=== PATIENT | male | born 1945 | race Caucasian/White ===

== ENCOUNTER 2018-03-05 11:25 | Emergency (ER) | payer MEDICARE, OTHER ==
[~2018-03-05] VITALS: Ht 172.7 cm; Wt 115.7 kg
--- OUTSIDE RECORDS SUMMARY | ~2018-03-05 | XMS | Clinical Summary ---
Demographics + + + | Address | [address] | | | [place] [address] | + + + | Home Phone | | + + + | Preferred Language | Unknown | + + + | Marital Status | | + + + | Sikhism Affiliation | Unknown | + + + | Race | Unknown | + + + | Ethnic Group | Unknown | + + + Author + + + | Author | [facility] | | | and Clana | + + + | Organization | [facility] | | | and Clana | + + + | Address | Unknown | + + + | Phone | Unavailable | + + + Support + + + + + | Name | Relationship | Address | Phone | + + + + + | Marta Crane | ECON | [address] | | | | | [place], [place] | | | | | [address] | | + + + + + Care Team Providers + +------+ + | Care Cloth Colorer Name | Role | Phone | + +------+ + | Unknown, Doctor | PP | | + +------+ + Allergies Not on File Current Medications Not on file Active Problems Not on file Social History + +-------+ +--------+------+ | Tobacco Use | Types | Packs/Day | Years | Date | | | | | Used | | + +-------+ +--------+------+ | Never Assessed | | | | | + +-------+ +--------+------+ + + + | Sex Assigned at | Date Recorded | | | | + + + | Not on file | | + + + Plan of Treatment + + + + + | Health Maintenance | Due Date | Last Done | Comments | + + + + + | Vaccine: | | | | | Dtap/Tdap/Td (1 - | 6 | | | | Tdap) | | | | + + + + + | Vaccine: Zoster (1 | | | | | of 2) | 7 | | | + + + + + | Vaccine: | | 10/31/2015 | | | Pneumococcal 65+ | 7 | | | | Low/Medium Risk (2 | | | | | of 2 - PPSV23) | | | | + + + + + | Vaccine: Influenza | | 05/11/2016, 05/05/2015 | | | (#1) | 8 | | | + + + + + Results Not on filefrom Last 3 Months Insurance + +--------+ +--------+-------+---------+ | Payer | Benefi | Subscriber | Type | Phone | Address | | | t Plan | ID | | | | | | / | | | | | | | Group | | | | | + +--------+ +--------+-------+---------+ | [employer] | [employer] | [id number] | Indemn | | | | | [place] | | ity | | | | | AD[place] | | | | | | | [place] | | | | | | | [place] | | | | | + +--------+ +--------+-------+---------+ + +--------+ +--------+ + + | Guarantor Name | Accoun | Relation to | Date | Phone | Billing Address | | | t Type | Patient | of | | | | | | | | | | + +--------+ +--------+ + + | JALEN CRANE | Person | Self [birth year] Home: | [address] | | | al/Fam | | 1945 | [phone] | [place] [address] | | | [place] | | | [phone] | | + +--------+ +--------+ + +"
--- OUTSIDE RECORDS SUMMARY | ~2018-03-05 | XMS | Clinical Summary ---
Demographics + + + | Address | [address] | | | [place] [address] | + + + | Home Phone | | + + + | Preferred Language | Unknown | + + + | Marital Status | | + + + | Yarsanism Affiliation | Unknown | + + + | Race | Unknown | + + + | Ethnic Group | Unknown | + + + Author + + + | Author | [facility] | | | and Clana | + + + | Organization | [facility] | | | and Clana | [...] [place], [place] | | | | | [address] | | + + + + + Care Team Providers + +------+ + | Care Disk Recoater Name | Role | Phone | + [...] +--------+-------+---------+ | [employer] | [employer] | [id number] | Indemn | | | | | [...] | 1945 | [phone] | [place] [address] | | | [place] | | | [phone] | | + +--------+ +--------+ + +"
[~2018-03-05 11:25] MED LIST: ASPIR-LOW81 MG PO; CIPRO500 MG PO; HYDROCHLOROTHIA25 MG PO; HYDROCODON-ACE1 EA11 PO; LISINOPRIL20 MG PO; METRONIDAZOLE500 MG PO; MINIPRESS2 MG PO; NORVASC5 MG PO; PROAIR RESPICL90 MCG IH; PROVENTIL HFA6.7 GM; PROVENTIL HFA6.7 GM INH; VALSARTAN160 MG
[2018-03-05] MEDS ORDERED: LISINOPRIL10 MG PO (11:58)
[2018-03-05] MEDS ORDERED: FLONASE ALLERG9.9 ML NAS (11:58)
[2018-03-05] MEDS ORDERED: SYMBICORT 80-10.2 GM INH (11:59)
== END 2018-03-05 13:05 | disposition home or self-care (01) ==
LOC: ED 11:25
DX: S61.213A Laceration without foreign body of left middle finger without damage to nail, initial encounter (principal); W26.0XXA Contact with knife, initial encounter; I10 Essential (primary) hypertension; Z79.899 Other long term (current) drug therapy
CPT/HCPCS: 12001; 90471; 90715; 99282

== ENCOUNTER 2020-05-05 12:51 | Emergency (ER) | payer MEDICARE ==
[~2020-05-05] VITALS: Ht 172.7 cm; Wt 113.9 kg
[~2020-05-05 12:51] MED LIST changes: +FLONASE ALLERG9.9 ML NAS; +LISINOPRIL10 MG PO; +LUBRICATING PL1 EACH OPTH; +SYMBICORT 80-10.2 GM INH
[2020-05-05] MEDS ORDERED: LISINOPRIL5 MG PO (13:16)
[2020-05-05] MEDS ORDERED: CYCLOBENZAPRINE5 MG PO (14:18)
[2020-05-05] MEDS ORDERED: MELOXICAM7.5 MG PO (14:18)
[2020-05-05] MEDS ORDERED: NORCO 7.5-3251 EACH PO (14:18)
== END 2020-05-05 14:40 | disposition home or self-care (01) ==
LOC: ED 12:51
DX: S39.012A Strain of muscle, fascia and tendon of lower back, initial encounter (principal); W10.9XXA Fall (on) (from) unspecified stairs and steps, initial encounter; I10 Essential (primary) hypertension; E11.9 Type 2 diabetes mellitus without complications; Z86.73 Personal history of transient ischemic attack (TIA), and cerebral infarction without residual deficits; Z79.899 Other long term (current) drug therapy
CPT/HCPCS: 72100; 72170; 96372; 99283-25; A9270; J1885

== ENCOUNTER 2021-07-14 18:33 | Inpatient (IN) | payer MEDICARE ==
[~2021-07-14] VITALS: Ht 172.7 cm; Wt 108.1 kg
[~2021-07-14 18:33] MED LIST changes: +CYCLOBENZAPRINE5 MG PO; +LISINOPRIL5 MG PO; -LUBRICATING PL1 EACH OPTH; +LUBRICATING PL1 EACH OU; +MELOXICAM7.5 MG PO; +NORCO 7.5-3251 EACH PO; +NORVASC10 MG PO; -NORVASC5 MG PO
--- NOTE | 2021-07-14 23:50 | NUR ---
PT ARRIVED ON UNIT, RESTLESS AFTER TRANSFER TO BED. PT ORIENTED TO SITUATION, VENTILATION, AND RESTRAINTS. EYES OPEN TO STIMULI, NOT FOLLOWING COMMANDS AT THIS TIME. PROPOFOL INFUSING FOR SEDATION, SEE MAR. VITAL SIGNS STABLE. UNABLE TO COMPLETE ADMISSION INFO D/T INTUBATION AND SEDATION. RESTRAINTS IN PLACE WITH ADEQUATE BLOOD FLOW BUE. WILL CONTINUE TO MONITOR.
--- NOTE | 2021-07-15 00:30 | NUR ---
PT'S RESTLESSNESS RESOLVED AFTER PT SETTLED AND LEFT ALONE. BP NOTED TO HAVE DECREASED TO 80/52 MAP 61. PROPOFOL INFUSION STOPPED FOR APPROXIMATELY 30 MINUTES. BP REPEATED 15 MINUTES AFTER INFUSTION STOPPED BP INCREASED TO 101/67. AFTER 30 MINUTES BP 129/78 AND PT WOKE SUDDENLY AND PULLING AT RESTRAINTS. ORIENTED PT TO SITUATION, RESPIRATORY SUPPORT, AND RESTRAINTS. PT NODS HEAD IN UNDERSTANDING AND PROPOFOL INFUSION WAS RESTARTED AT 25 MCG/KG/MIN AND INCREASED PER ORDERS TO RATE OF 35 MCG/KG/MIN.
--- NOTE | 2021-07-15 04:30 | NUR ---
PT WAKES EASILY TO VOICE, ABLE TO MOVE ALL EXTREMITIES AND FOLLOW COMMANDS. ORAL CARE PROVIDED AND PT REPOSITIONED TO LEFT SIDE. ORIENTED PT TO POC FOR EXTUBATION AND EXPLAINED SEDATION VACATION AND WEANING TRIAL.
--- NOTE | 2021-07-15 06:43 | NUR ---
COORDINATED WITH RT RICHARD FOR WEAN TRIAL. PT FOLLOWS ALL COMMANDS AND NODS UNDERTANDING OF WEAN TRIAL INSTRUCTIONS. WEAN TRIAL PASSED AND VBG OBTAINED. EXTUBATION ORDER OBTAINED BY RT FROM DR. MALLOY. PT EXTUBATED AT 0626 TO RA. O2 SATS MAINTAINED AT 92-94% ON RA. PT IS ALERT AND ORIENTED X3, PT DOES NOT RECALL HOW HE CAME TO BE AT THE HOSPITAL AND WAS UPDATED ON EVENTS LEADING TO ADMISSION. PT STATES HE HAD 2 "EPISODES" AND STATES THAT THESE EPISODES WERE "FLASHBACKS TO NAM". PT STATES HE "KNEW SOMETHING WASN'T RIGHT". PT WAS ORIENTED TO ROOM, CALL LIGHT, AND POC. PT VERBALIZES UNDERSTANDING AND DENIES FURTHER NEEDS. WILL CONTINUE TO MONITOR.
--- NOTE | 2021-07-15 06:46 | NUR ---
0600 TELPHONE ORDER TO EXTUBATE AND USE NIV IF CONCERNS ARIVE. NOTIFY DR. MALLOY WITH ANY CONCERNS.
--- NOTE | 2021-07-15 07:34 | NUR ---
PLEASE SEE PAPER CHART FOR FULL FREQUENT VITALS.
--- NOTE | 2021-07-15 08:00 | NUR ---
SINCE EXTUBATION AT 0626 PT HAS BEEN ON RA AND DOIN WELL OVERALL. RT TALKED TO PT ABOUT THE USE OF THE CORONETT, RLL HAS CRACKLES PRESENT, ALL OTHER LOBES CLEAR, PT DID PASS BEDSIDE SWALLOW STUDY WITH CHIN TUCK. NIH WAS 0, CIWA 1 AT THIS TIME. PT STATED THAT HIS LAST DRINK WAS 07/14/21 @ 1900 IN THE FORM OF RUM AND COKE. ABD SOUNDS PRESENT, TRACE EDEMA BILATERAL LOWER LEGS, RADIAL AND PEDIS PULSES +2, PT DISORIENTED TO EVENT. PT DOES ALSO HAVE A PRODUCTIVE COUGH AND USES THE SUCTION DEVICE. WILL CONTINUE TO MONITOR.
--- NOTE | 2021-07-15 09:08 | NUR ---
ONE THING OF NOTE, PT URINE IS COULDY IN APPEARANCE. THERE IS A REFLEX URINE CULTURE PENDING.
--- NOTE | 2021-07-15 09:28 | NUR ---
RT COLLECTED RAPID COVID 19 SWAB WITH NO COMPLICATIONS AT THIS TIME.
--- NOTE | 2021-07-15 11:00 | NUR ---
PT IN ROOM RESTNG WITH EYES CLOSED.
--- NOTE | 2021-07-15 12:15 | NUR ---
V/S WDL, PT SO FAR VOIDED 180MLS SINCE ESPINOSA D/C. UPPER LOBES CLEAR, LOWER LOBES HAVE SOME COARSNESS PRESENT. BENNIE. LOWER LEG EDEMA UNCHANGED. PT WALKED FROM BED TO CHAIR AND DID VERY WELL WITH IT. OVERALL NO NEW CONCERNS NOTED.
--- NOTE | 2021-07-15 14:00 | NUR ---
PT DID WALK TO BATHROOM WITHOUT MUCH ISSUES. PT DID STATE THAT HE FELT A BIT SOB.
--- NOTE | 2021-07-15 15:42 | NUR ---
PT IS STILL SITTING IN CHAIR. RT IN ROOM. PT WAS RESTING PRIOR FOR ABOUT AN HOUR. NO NEW CONCERNS NOTED OVERALL.
--- NOTE | 2021-07-15 15:55 | NUR ---
V/S WDL, BILATERAL LOWER LOBES HAVE SOME COARSNESS PRESENT, ALL OTHER LOBES CLEAR. PT STILL HAS TRACE BILATERAL LOWER LEG EDMEA PRESENT. NO NEW CONCERNS NOTED WITH THIS ASSESSMENT. PT IS DOING WELL OVERALL. PT HAD A BM TODAY, URINE OUTPUT IS WDL, PT ABLE TO WALK INDEPENDENTLY, PO INTAKE WDL.
--- NOTE | 2021-07-15 16:55 | NUR ---
REPORT GIVEN TO WARNER CROOKS. PT TO TRANSFER TO MS 109. PT WANTS TO WALK TO HIS NEW ROOM. NO NEW CONCERNS NOTED AT THIS TIME. PT WALKED A GOOD BIT PHYS. THERAPY IN THE HALLWAY AND DID VERY WELL.
--- NOTE | 2021-07-15 17:30 | NUR ---
PT TX FROM CCU TO ROOM 109, PT ABLE TO AMBULATE TO THE ROOM FROM THE UNIT, ON ROOM AIR, A&OX4, PLACED ON TELE #4, VSS,IV FLUSHED , EDUCATED MIDDLEWARE SOLUTIONS ARCHITECT LIGHT, DENIES ANY NEEDS AT THE MOMENT.
--- NOTE | 2021-07-15 19:15 | NUR ---
UPON DOING BEDSIDE REPORT NOTICED PT IV ON THE L AC WAS SWOLLEN, IV STOPPED AND REMOVED, WARM PACK PROVIDED CASER UP RN DAQUAN AWARE WELL. PT STATES IT IS A LITTLE TENDER. WILL MONITOR
--- NOTE | 2021-07-15 20:30 | NUR ---
REPORT RECEIVED FROM RN AT BEDSIDE. PT. REPORTS PAIN AT IV SITE IN LEFT AC. SITE WAS LARGE AND INFILTRATED. PT. STATES HE REPORT PAIN TO CHIEF PSYCHOLOGY AND SHE REMOVED TAPE AND REPLACED WITH COBAND AND TOLD HIM THE PAIN WAS FROM TAPE. IV SITE REMOVED, HEAT PACK APPLIED AND ELEVATED WITH PILLOW. PT. EDUCATED ON S/SX TO REPORT AT IV SITE. PT. IS ALERT AND ORIENTED. HE DENIES ANXIETY, OR SX OF WITHDRAWAL. ON R.A. AND HE DENIES SOB. IVF INFUSING IN RIGHT ARM. DISCUSSED MEDS, SAFETY AND POC. LEFT RESTING WITH CALL LIGHT IN REACH.
--- NOTE | 2021-07-15 23:33 | NUR ---
PT. USED FWW TO PIVOT FROM BSC TO BED. VOIDED 200ML. PT. BROUGHT ICE PACK AND LEFT RESTING WITH CALL LIGHT IN REACH.
--- NOTE | 2021-07-16 02:24 | NUR ---
RECEIVED REPORT FROM DAKSHA BUTT. ROUNDED ON pt. RESTING IN BED WITH EYES CLOSED, RESPIRATIONS REGULAR AND UNLABORED. CALL LIGHT WITHIN REACH.
--- NOTE | 2021-07-16 05:03 | NUR ---
IN TO CHANGE TELE BATTERY, pt WOKE TO VOICE. ASSESSMENT DONE. VITALS DONE. URINAL EMPTIED. NO REQUESTS AT THIS TIME. DENIES PAIN. pt ALERT AND ORIENTED. CALL LIGHT WITHIN REACH.
--- NOTE | 2021-07-16 06:16 | NUR ---
IN TO START IV ANTIBIOTIC. pt SNORING, RESPIRATIONS REGULAR AND UNLABORED. CALL LIGHT WITHIN REACH.
--- NOTE | 2021-07-16 07:28 | NUR ---
REPORT RECEIVED FROM DAKSHA CHAUDHRY. PT RESTING IN BED WITH EYES CLOSED. RESPIRATIONS EVEN AND UNLABORED. BED RAILS UP. CALL LIGHT WITHIN REACH. TELEMETRY MONITORING SHOWS NORMAL SINUS RHYTHEM WITH HR OF 62. PT ALLOWED TO REST.
--- NOTE | 2021-07-16 07:47 | NUR ---
PT AWAKE IN BED AND IS INDEPENDENT TO TRANSFER TO THE CHAIR. WHITE BOARD UPDATED. RT IN ROOM WITH PT. CALL LIGHT WITHIN REACH. NO FURTHER NEEDS AT THIS TIME.
--- NOTE | 2021-07-16 09:12 | NUR ---
MORNING ASSESSMENT DUE. PT UP TO RESTROOM INDEPENDANTLY. PT HAS LARGE LOOSE BOWEL MOVEMENT. PT RERPORTS "I'VE HAD DIARRHEA EVER SINCE [place], NOONE SEEMS TO KNOW WHY." PT VOIDS IN URINAL, CLEAR YELLOW URINE. PT INDEPENDANT BACK TO CHAIR. FRESH UNDERWARE PROVIDED. PT DENIES PAIN AND NAUSEA. PT REPORTS "I JUST FEEL SO MUCH BETTER THAN BEFORE. "IT WAS LIKE I WAS WATCH MYSELF GETTIGN KILLED." PT REPORTS HE HAS BEEN GOING TO COUSELING EVERY WEEK AND IS "DOING MUCH BETTER LATELY COMPAIRED TO BEFORE." PT ALERT AND ORIENTED TO ALL. ABLE TO RECAL EVENTS OF THE PAST FEW DAYS AND CARIES ON CONVERSATION APPROPRIATLY. PT COOPERATEIVE WITH CARES. PT STEADY ON FEET IN ROOM AND ABLE TO MOVE ABOUT INDEPENDANTLY. LUNG SOUNDS CLEAR. PT REPORTS COUGH CONTINUES WITH THICK YELLOW SPUTUM, PT STATES IMPROVING. TELEMETRY MONITORING IN PLACE WITH NORMAL SINUS RHYTHEM, HEART RATE IN THE 70'S. PTS CALLED AND ASKS PT IF HE REMEMBERS GOING TO THE STORE BETWEEN HIS EPISODES 2 DAYS AGO, PT STATE "WOW! I DON'T REMEMBER THAT AT ALL. I WAS REALLY OUT OF IT." PT REMAINS UP TO CHAIR. TALKING WITH FAMILY. PT FINISHED A BEER WITH BREAKFAST. PT DENIES ADDITIONAL REQUESTS OR COMPLAINTS. CALL LIGHT WITHIN REACH.
--- NOTE | 2021-07-16 09:25 | NUR ---
PT UP IN CHAIR DOING CROSSWORD PUZZLES. CALL LIGHT WITHIN REACH. NO FURTHER NEEDS AT THIS TIME
--- NOTE | 2021-07-16 09:53 | NUR ---
THIS RN TO ROOM TO CHECK ON PT. PT UP TO CHAIR, RESTING WITH EYES CLOSED. PT AWAKENS TO MOVEMENT IN THE ROOM. PT DENIES PAIN AND NAUSEA. PT REPORTS HE FEELS "READY TO GO HOME." NO ADDITIONAL REQUESTS OR COMPLAINTS. CALL RENE SQUIRES.
--- NOTE | 2021-07-16 11:02 | NUR ---
THIS RN TO ROOM TO CHECK ON PT. PT TALKING WITH FAMILY ON PHONE. TELEMETRY MONITORING CONTINUES TO SHOW NORMAL SINUS RYTHEM WITH HR IN THE 70'S. PT FRIEND GENOVEVA ARRIVED TO VISIT WITH PT. PT DENIES ADDITIONAL REQUESTS OR COMPLAINTS AT THIS TIME. CALL LIGHT WITHIN REACH.
[2021-07-16] MEDS ORDERED: VITAMIN D350 MC3 PO (11:12)
[2021-07-16] MEDS ORDERED: VITAMIN B-121000 MCG PO (11:13)
[2021-07-16] MEDS ORDERED: CLOTRIMAZOLE45 G1 TOP (11:13)
[2021-07-16] MEDS ORDERED: WIXELA 250-501 EACH INH (11:14)
[2021-07-16] MEDS ORDERED: VOLTAREN ARTHRI20 GM TOP (11:14)
--- NOTE | 2021-07-16 11:47 | NUR ---
THIS RN TO ROOM TO CHECK ON PT AND UPDATE PT ON DISCHARGE. PT STATES HIS DAUGHTER TESTED POSITIVE FOR COVID AND THEREFORE HE IS PLANNING TO GO HOME WITH A FRIEND. FRIEND AT BEDSIDE AND VERBALZIES UNDERSTANDING OF PLAN. IV'S DC'E PER PROTOCOL, GAUZE AND COBAN APPLIED, IV ABX INFUSION COMPLETE. PT UP IN ROOM INDEPENDANTLY TO GET DRESSED. PT STATES HE WOULD LIKE TO EAT LUNCH AND THEN GO HOME. NO ADDITIONAL REQUESTS OR COMPLAINTS AT THIS TIME. CALL RENE SQUIRES.
[2021-07-16] MEDS ORDERED: AUGMENTIN 875-1 EACH PO (11:58)
[2021-07-16] MEDS ORDERED: DIOVAN320 MG PO (12:08)
[2021-07-16] MEDS ORDERED: MINIPRESS2 MG PO (12:11)
--- NOTE | 2021-07-16 12:27 | NUR ---
PT READY FOR DISCHARGE. PT DRESSES SELF, NO ASSISTANCE NEEDED. VITAL SIGNS STABLE. PHARMACIST TO BEDSIDE TO REVIEW MEDICATIONS WITH PT. PT VERBALIZES UNDERSTANDING OF MEDICATIONS AND STATES HIS QUESTIONS HAVE BEEN ANSWERED. DISCHRAGE INSTRUCTIONS REVIEWEDW ITH PT. PT VERBALIZES UNDERSTANDING OF INSTRUCTIONS, MEDICATIONS, FOLLOW UP AND BLOOD PRESSURE MONITORING. PT WHEELED FROM MED/SURG TO MEET FRIEND AT FRONT OF HOSPITAL.
== END 2021-07-16 12:35 | disposition home or self-care (01) | DRG 208 ==
LOC: ED 18:33 → CCU 22:00 → MS 07-15 17:00
PROVIDERS: ADMIT Internal Medicine; ATTEND Internal Medicine
PROC: 5A1935Z Respiratory Ventilation, Less than 24 Consecutive Hours (ICD-10-PCS; principal; 2021-07-14)
DX: J18.9 Pneumonia, unspecified organism (principal); J96.01 Acute respiratory failure with hypoxia; J96.02 Acute respiratory failure with hypercapnia; G93.41 Metabolic encephalopathy; J44.0 Chronic obstructive pulmonary disease with (acute) lower respiratory infection; Z20.822 Contact with and (suspected) exposure to COVID-19; F10.20 Alcohol dependence, uncomplicated; F43.10 Post-traumatic stress disorder, unspecified; I10 Essential (primary) hypertension; E11.9 Type 2 diabetes mellitus without complications; Z86.73 Personal history of transient ischemic attack (TIA), and cerebral infarction without residual deficits; Z90.49 Acquired absence of other specified parts of digestive tract; Z90.89 Acquired absence of other organs; Z98.890 Other specified postprocedural states; Z79.899 Other long term (current) drug therapy
CPT/HCPCS: 36600; 51702; 70450; 71045; 71260; 80053; 81001; 82803; 83605; 83735; 84100; 84484; 85025; 87070; 87088; 87205; 94002; 94003; 94640; 94667; 94668; 94760; 97161; 99285-25; C9113; C9803; G0480; J0456; J1650; J2543; J2704; J7060; J7121; Q9967; U0003

== ENCOUNTER 2022-11-08 17:15 | Emergency (ER) | payer OTHER, MEDICARE ==
[~2022-11-08] VITALS: Ht 172.7 cm; Wt 108.0 kg
[~2022-11-08 17:15] MED LIST changes: +AUGMENTIN 875-1 EACH PO; +CLOTRIMAZOLE45 G1 TOP; +DIOVAN320 MG PO; +VITAMIN B-121000 MCG PO; +VITAMIN D350 MC3 PO; +VOLTAREN ARTHRI20 GM TOP; +WIXELA 250-501 EACH INH
[2022-11-08] MEDS ORDERED: CEPHALEXIN500 M1 PO (21:00)
[2022-11-08 21:19] VITALS: BP 155/82
== END 2022-11-08 21:20 | disposition home or self-care (01) ==
LOC: ED 17:15
DX: S61.213A Laceration without foreign body of left middle finger without damage to nail, initial encounter (principal); X58.XXXA Exposure to other specified factors, initial encounter; I10 Essential (primary) hypertension; R73.03 Prediabetes; E66.3 Overweight; Z68.36 Body mass index [BMI] 36.0-36.9, adult; Z79.899 Other long term (current) drug therapy
CPT/HCPCS: 73140; A9270

== ENCOUNTER 2023-07-15 14:45 | Emergency (ER) | payer OTHER, MEDICARE ==
[~2023-07-15] VITALS: Ht 172.7 cm; Wt 105.6 kg
[~2023-07-15 14:45] MED LIST changes: +CEPHALEXIN500 M1 PO
[2023-07-15 17:09] VITALS: BP 126/82
== END 2023-07-15 17:10 | disposition home or self-care (01) ==
LOC: ED 14:45
DX: J06.9 Acute upper respiratory infection, unspecified (principal); I10 Essential (primary) hypertension; Z79.899 Other long term (current) drug therapy; Z79.51 Long term (current) use of inhaled steroids
CPT/HCPCS: 71045; 94640; 99283-25

== ENCOUNTER 2024-01-28 08:21 | Day surgery (SDC) | payer OTHER ==
[2024-01-20 10:22] VITALS: BP 135/85
[~2024-01-28] VITALS: Ht 172.7 cm; Wt 105.0 kg
--- NOTE | ~2024-01-28 | OR ---
[facility] [address], [place] [address] Draft DATE OF OPERATION: 01/28/2024 SURGEON: Tello Cardozo MD PREOPERATIVE DIAGNOSIS: Chronic hearing loss, serous effusion, right ear. POSTOPERATIVE DIAGNOSIS: Chronic hearing loss, serous effusion, right ear. PROCEDURE: Right myringotomy ventilation tube insertion with T-tube. ANESTHESIA: General LMA; Zach NICK. PREOPERATIVE HISTORY: Jalen is a 78-year-old male with hearing loss, right ear, flat tympanogram. He had a Banda tube placed in the past. This was extruded. He has recurrent effusion, conductive hearing loss taken to the operating room for replacement of his ear tube. OPERATIVE PROCEDURE AND FINDINGS: After informed consent, the patient was taken to the operating room, placed in supine position where general LMA anesthesia was induced. The patient and procedure were verified. The right ear was examined with the operative microscope. Banda tube in the ear canal was removed. The eardrum was dull, retracted and inferior radial myringotomy was made. Serous effusion suctioned from the middle ear space. T-Tube placed in myringotomy site. Ofloxacin ophthalmic drops applied to the ear canal, cotton ball to the meatus. The patient tolerated the procedure well, was awakened, extubated, transported to recovery room in good condition. No complications. BLOOD LOSS: Minimal. SPECIMEN: None. DRAINS: None. PATIENT NAME: JALEN CRANE OPERATIVE REPORT DATE OF : 49 REPORT #: [id number] PHYSICIAN: TELLO CARDOZO MD PCP: FREDDY WALTER MD REPORT IS CONFIDENTIAL AND NOT TO BE RELEASED WITHOUT AUTHORIZATION [address] [place], [place] [address] Draft Tello Cardozo MD /[facility] /[id number] Copies: ~ PATIENT NAME: JALEN CRANE OPERATIVE REPORT DATE OF : 49 REPORT #: [id number] PHYSICIAN: TELLO CARDOZO MD PCP: FREDDY WALTER MD REPORT IS CONFIDENTIAL AND NOT TO BE RELEASED WITHOUT AUTHORIZATION
[~2024-01-28 08:21] MED LIST changes: +COZAAR25 MG PO; +IBLOOD GLUCOSE TEST STRIP 1 EA TEST VI PRN; +LACTATED RINGER'S 1,000 ML IV SCH; +LIDOCAINE HCL 1% 5 ML SDV INJ ONE; +VALSARTAN40 MG PO
[2024-01-28 08:35] VITALS: BP 137/77
[2024-01-28] MEDS ORDERED: DEXAMETHASONE SOD PHOS 4 MG/ML VIAL ONE (08:38)
[2024-01-28] MEDS ORDERED: LACTATED RINGER'S 1,000 ML IV ONE (08:38)
[2024-01-28] MEDS ORDERED: propofoL 200 MG/20 ML VIAL ONE (08:38)
[2024-01-28] MEDS ORDERED: fentaNYL citrate 100 MCG/2 ML VIAL ONE (08:38)
[2024-01-28] MEDS ORDERED: KETOROLAC TROMETHAMINE 30 MG/ML VIAL ONE (08:38)
[2024-01-28] MEDS ORDERED: ondansetron HCL 4 MG/2 ML VIAL ONE (08:38)
[2024-01-28] MEDS ORDERED: METOCLOPRAMIDE HCL 10 MG/2 ML SDV ONE (08:38)
[2024-01-28] MEDS ORDERED: FAMOTIDINE 20 MG/ 2 ML VIAL ONE (08:39)
[2024-01-28] MEDS ORDERED: CIPROFLOXACIN 0.3% 5 ML HOME.PACK ONE (08:48)
[2024-01-28] MEDS ORDERED: CIPROFLOXACIN 0.3% 5 ML HOME.PACK OTIC ONE (10:30)
--- NOTE | 2024-01-28 10:36 | NUR ---
01/28/24 1036 Adri Knowles 1025 PT ARRIVED IN PACU SLEEPY. R EAR WITH COTTON BALL IN PLACE. 1035 OXYGEN REMOVED. PT AWAKE AND TALKING TO STAFF. NO C/O'S.
--- NOTE | 2024-01-28 10:45 | NUR ---
PT ARRIVES TO DS UNIT FROM PACU VIA STRETCHER. PT IS A&O AND REPORTS NO PAIN OR NAUSEA AT THIS TIME. PT ASKING QUESTIONS APPROPRIATELY. PT ON RA W/O2 >90% VIA PULSE OX, RESPIRATIONS EVEN AND UNLABORED, NO SIGNS OF DISTRESS. ICE WATER, JELLO, AND CRACKERS PROVIDED, PT TOLERATING WITHOUT DIFFICULTY SWALLOWING. PROVIDED PT PHONE AND DENTURES AT PT REQUEST. CALL LIGHT WITHIN REACH, PT REPORTS NO FURTHER NEEDS OR QUESTIONS AT THIS TIME.
[2024-01-28 10:49] VITALS: BP 146/79
--- NOTE | 2024-01-28 11:15 | NUR ---
IN PT ROOM FOR PAIN ASSESSMENT. PT REPORTS NO PAIN AT THIS TIME. PT CONSUMED JELLO AND CRACKERS WITHOUT DIFFICULTY, TOLERATING ORAL FLUIDS WITHOUT REPORTED NAUSEA. PT STATES NO FURTHER NEEDS AT THIS TIME. CALL LIGHT WITHIN REACH.
--- NOTE | 2024-01-28 11:25 | NUR ---
GITA RN IN ROOM AT THIS TIME TO ADVISE PT TO CALL TO ARRIVE AT 1145 AND PT IS NOW GETTING DRESSED. CALL LIGHT WITHIN REACH, PT STATES HE NEEDS NO ASSISTANCE WITH GETTING DRESSED. PT ADVISED TO MOVE SLOWLY, PT STATES VERBAL UNDERSTANDING.
[2024-01-28 11:34] VITALS: BP 139/71
--- NOTE | 2024-01-28 11:35 | NUR ---
IN PT ROOM FOR DISCHARGE EDUCATION, ASSESSMENT, AND VS AT THIS TIME. PT STATES VERBAL UNDERSTANDING TO DISCHARGE EDUCATION AND PT STATES NO FURTHER QUESTIONS AT THIS TIME. PT OFF OF UNIT VIA WC TO PASSENGER SIDE OF 'S VEHICLE. ALL BELONGINGS IN PT POSSESSION. PT STATES NO FURTHER NEEDS.
== END 2024-01-28 11:40 | disposition home or self-care (01) ==
LOC: OPS 08:21 → DS 08:21 → OPS 08:30
PROVIDERS: ATTEND Otolaryngology
PROC: 099500Z Drainage of Right Middle Ear with Drainage Device, Open Approach (ICD-10-PCS; principal; 2024-01-28 10:00)
DX: H65.21 Chronic serous otitis media, right ear (principal); H91.91 Unspecified hearing loss, right ear; H69.81 Other specified disorders of Eustachian tube, right ear; H91.13 Presbycusis, bilateral
CPT/HCPCS: J1100; J1885; J2405; J2704; J2765; J3010; J7121

== ENCOUNTER 2024-02-27 13:37 | Emergency (ER) | payer OTHER ==
[~2024-02-27] VITALS: Ht 172.7 cm; Wt 105.2 kg
[~2024-02-27 13:37] MED LIST changes: -IBLOOD GLUCOSE TEST STRIP 1 EA TEST VI PRN; -LACTATED RINGER'S 1,000 ML IV SCH; -LIDOCAINE HCL 1% 5 ML SDV INJ ONE
[2024-02-27 13:56] LABS: BASOPHILS 0.5 % (0-2); EOSINOPHILS 0.2 % (0-6); HEMATOCRIT 42.8 % (35.0-50.0); HEMOGLOBIN 14.6 g/dL (12.0-18.0); LYMPHOCYTES 8.8 % (24-44); MCH 30.1 (27-36); MCHC 34.1 g/dl (30-36); MCV 88.3 fl (81-99); MONOCYTES 7.4 % (0-12); NEUTROPHILS 83.1 % (39-80); PLATELET COUNT 157 K/uL (140-440); RBC 4.85 M/ul (4.3-5.7); RDW 13.7 (10.5-15.0)
[2024-02-27 14:12] LABS: ALBUMIN 3.4 g/dL (3.4-5.0); ALCOHOL, MEDICAL <3 ng/dL (<3); ALKALINE PHOSPHATASE 75 U/L (46-116); ALT (SGPT) 15 U/L (14-59); ANION GAP 12.3 (7-21); AST (SGOT) 20 U/L (15-37); BILIRUBIN, TOTAL 0.6 ng/dL (0.2-1.0); BUN/CREATININE RATIO 9.09 (6.0-28.6); CALCIUM 8.3 mg/dL (8.5-10.1); CARBON DIOXIDE 28 mmol/L (21-32); CHLORIDE 103 mmol/L (98-107); CREATININE, SERUM 0.99 mg/dL (0.70-1.30); GLOMERULAR FILTRATION RATE,EST 79 mL/min (>60); POTASSIUM 3.3 mmol/L (3.5-5.1); PROTEIN, TOTAL 6.5 g/dL (6.4-8.2); UREA NITROGEN 9 mg/dL (7-18)
[2024-02-27 14:47] LABS: ABO A; ANTIBODY SCREEN NEGATIVE; RH POSITIVE
[2024-02-27] MEDS ORDERED: IBUPROFEN 800 MG TAB PO ONE (16:00)
[2024-02-27 16:50] LABS: AMPHETAMINES, URINE NEGATIVE (NEGATIVE); BARBITURATES, URINE NEGATIVE (NEGATIVE); BENZODIAZEPINE, URINE NEGATIVE (NEGATIVE); BUPRENORPHINE, URINE NEGATIVE (NEGATIVE); CANNABINOID, URINE NEGATIVE (NEGATIVE); COCAINE, URINE NEGATIVE (NEGATIVE); ECSTASY, URINE NEGATIVE (NEGATIVE); FENTANYL, URINE NEGATIVE (NEGATIVE); METHADONE, URINE NEGATIVE (NEGATIVE); OPIATES, URINE NEGATIVE (NEGATIVE); OXYCODONE, URINE NEGATIVE (NEGATIVE); PHENCYCLIDINE, URINE NEGATIVE (NEGATIVE)
[2024-02-27 18:00] VITALS: BP 127/76
--- NOTE | 2024-02-28 19:43 | EKG ---
[facility] [address] [facility] [place] [address] Signed Sinus rhythm with 1st degree AV block Otherwise normal ECG When compared with ECG of 15-OCT-2023 07:09, premature atrial complexes are no longer present IA interval has increased Confirmed by Ra Charles MD ([id number]) on 02/28/2024 7:43:24 PM Electronically Signed By: RA CHARLES MD 02/28/241942 PATIENT NAME: JALEN CRANE HARDY Electrocardiogram DATE OF : 49 PHYSICIAN: RA CHARLES MD REPORT #: [id number] REPORT IS CONFIDENTIAL AND NOT TO BE RELEASED WITHOUT AUTHORIZATION
== END 2024-02-27 18:00 | disposition home or self-care (01) ==
LOC: ED 13:37
PROVIDERS: Emergency Medicine
DX: S06.9X9A Unspecified intracranial injury with loss of consciousness of unspecified duration, initial encounter (principal); I10 Essential (primary) hypertension; W06.XXXA Fall from bed, initial encounter; Z79.899 Other long term (current) drug therapy; Z86.73 Personal history of transient ischemic attack (TIA), and cerebral infarction without residual deficits
CPT/HCPCS: 36415; 70450; 70496; 70498; 71045; 72125; 72170; 80053; 80307; 83605; 84484; 85025; 86850; 86900; 86901; 93005; 93010; 99285-25; A9270; G0480; Q9967

== ENCOUNTER 2024-06-13 14:06 | Emergency (ER) | payer OTHER ==
[~2024-06-13] VITALS: Ht 172.7 cm; Wt 106.7 kg
[2024-06-13 14:41] LABS: BASOPHILS 0.4 % (0-2); EOSINOPHILS 0.3 % (0-6); HEMATOCRIT 44.4 % (35.0-50.0); HEMOGLOBIN 15.2 g/dL (12.0-18.0); LYMPHOCYTES 9.2 % (24-44); MCH 30.4 (27-36); MCHC 34.2 g/dl (30-36); NEUTROPHILS 82.1 % (39-80); PLATELET COUNT 152 K/uL (140-440); RBC 4.98 M/ul (4.3-5.7); RDW 14.7 (10.5-15.0)
[2024-06-13 14:53] LABS: INR 1.06 (0.80-1.30); PROTIME 13.4 Sec (11.2-14.2)
[2024-06-13 14:55] LABS: PARTIAL THROMBOPLASTIN TIME 22.2 Sec (22.9-41.3)
[2024-06-13 15:00] LABS: ALBUMIN 3.3 g/dL (3.4-5.0); ALBUMIN/GLOBULIN RATIO 1.06 (1.1-2.4); ALCOHOL, MEDICAL <3 ng/dL (<3); ALKALINE PHOSPHATASE 66 U/L (46-116); ALT (SGPT) 23 U/L (14-59); ANION GAP 14.2 (7-21); AST (SGOT) 25 U/L (15-37); BILIRUBIN, TOTAL 0.5 ng/dL (0.2-1.0); BUN/CREATININE RATIO 6.56 (6.0-28.6); CALCIUM 8.3 mg/dL (8.5-10.1); CARBON DIOXIDE 26 mmol/L (21-32); CHLORIDE 102 mmol/L (98-107); CREATINE KINASE 602 U/L (39-308); CREATININE, SERUM 1.37 mg/dL (0.70-1.30); GLOMERULAR FILTRATION RATE,EST 53 mL/min (>60); POTASSIUM 3.2 mmol/L (3.5-5.1); PROTEIN, TOTAL 6.4 g/dL (6.4-8.2); UREA NITROGEN 9 mg/dL (7-18)
[2024-06-13 15:59] LABS: AMPHETAMINES, URINE NEGATIVE (NEGATIVE); BARBITURATES, URINE NEGATIVE (NEGATIVE); BENZODIAZEPINE, URINE NEGATIVE (NEGATIVE); BUPRENORPHINE, URINE NEGATIVE (NEGATIVE); CANNABINOID, URINE NEGATIVE (NEGATIVE); COCAINE, URINE NEGATIVE (NEGATIVE); ECSTASY, URINE NEGATIVE (NEGATIVE); FENTANYL, URINE NEGATIVE (NEGATIVE); METHADONE, URINE NEGATIVE (NEGATIVE); OPIATES, URINE NEGATIVE (NEGATIVE); OXYCODONE, URINE NEGATIVE (NEGATIVE); PHENCYCLIDINE, URINE NEGATIVE (NEGATIVE)
[2024-06-13 15:59] LABS: INFLUENZA B NAA NEGATIVE (NEGATIVE); RESPIRATORY SYNCYTIAL VIR NAA NEGATIVE (NEGATIVE)
[2024-06-13] MEDS ORDERED: levETIRAcetam 500 MG/5 ML VIAL IV ONE (17:45)
--- NOTE | 2024-06-13 19:54 | EKG ---
[facility] [address] [facility] [place] [address] Signed Sinus rhythm with 1st degree AV block Abnormal ECG When compared with ECG of 27-FEB-2024 13:45, Inverted T waves have replaced nonspecific T wave abnormality in Inferior leads Confirmed by Horace Charles MD ([id number]) on 06/13/2024 7:54:08 PM Electronically Signed By: HORACE CHARLES MD 06/13/241953 PATIENT NAME: ROSA MARIAJALEN HARDY Electrocardiogram DATE OF : 49 PHYSICIAN: HORACE CHARLES MD REPORT #: [id number] REPORT IS CONFIDENTIAL AND NOT TO BE RELEASED WITHOUT AUTHORIZATION
[2024-06-13] MEDS ORDERED: KEPPRA500 MG PO (20:00)
[2024-06-13 20:10] VITALS: BP 137/83
== END 2024-06-13 20:10 | disposition home or self-care (01) ==
LOC: ED 14:06
PROVIDERS: Emergency Medicine
DX: R56.9 Unspecified convulsions (principal); I10 Essential (primary) hypertension; R73.03 Prediabetes; Z79.899 Other long term (current) drug therapy
CPT/HCPCS: 36415; 70450; 70496; 70498; 71045; 72125; 80053; 80307; 82553; 83605; 84484; 85025; 85610; 85730; 86850; 86900; 86901; 87502; 93005; 93010; 99285-25; G0480; J1953; Q9967; U0002

== ENCOUNTER 2024-09-04 07:15 | Day surgery (SDC) | payer OTHER ==
[~2024-09-04] VITALS: Ht 172.7 cm; Wt 104.5 kg
[~2024-09-04 07:15] MED LIST changes: +CALCIUM MAGNES1 EAC2 PO; +CEFAZOLIN SODIUM 2 GM/20 ML SYR IV SCH; +CELEBREX200 MG PO; +DEXAMETHASONE SOD PHOS 4 MG/ML VIAL ONE; +IBLOOD GLUCOSE TEST STRIP 1 EA TEST VI PRN; +KEPPRA500 MG PO; +KETOROLAC TROMETHAMINE 30 MG/ML VIAL ONE; +LACTATED RINGER'S 1,000 ML IV SCH; +LIDOCAINE HCL 1% 5 ML SDV INJ ONE; +LIDOCAINE HCL 2% 5 ML SDV ONE; +fentaNYL citrate 100 MCG/2 ML VIAL ONE; +ondansetron HCL 4 MG/2 ML VIAL ONE; +propofoL 200 MG/20 ML VIAL ONE
[2024-09-04 07:37] VITALS: BP 109/90
[2024-09-04] MEDS ORDERED: IBLOOD GLUCOSE TEST STRIP 1 EA TEST VI PRN (07:45)
[2024-09-04] MEDS ORDERED: ondansetron HCL 4 MG/2 ML VIAL IV PRN (07:45)
[2024-09-04] MEDS ORDERED: fentaNYL citrate 50 MCG/ML SDV IV PRN (07:45)
[2024-09-04] MEDS ORDERED: NALOXONE HCL 0.4 MG SYR IV PRN (07:45)
[2024-09-04] MEDS ORDERED: ACETAMINOPHEN 1,000 MG/100 ML VIAL ONE (08:03)
[2024-09-04] MEDS ORDERED: ePHEDrine sulfate 50 MG/ML AMP ONE (08:14)
[2024-09-04] MEDS ORDERED: CELECOXIB200 MG PO (08:44)
[2024-09-04] MEDS ORDERED: HYDROCODON-ACE1 EA10 PO (08:44)
[2024-09-04] MEDS ORDERED: HYDROCODONE/ACETA 5/325 TAB PO PRN (08:45)
--- NOTE | 2024-09-04 08:51 | NUR ---
09/04/24 0859 EDVIN DORSEY 6715 PT ARRIVED TO PACU VIA STREACHER. PT BREATHING EQUAL AND UNLABORED. PT HAS ORAL AIRWAY IN PLACE, PT HAS OXYGEN MASK IN PLACE WITH 6L OF OXYGEN. VITALS TAKEN. IV ASSESSED. PT NON RESPONSIVE TO SIMULI. REPORT TAKEN FROM PIPER NICK. [id number] PT RESPONSIVE TO TACTILE STIMULI, PT ORAL AIRWAY REMOVED. PT STATES THAT HE HAS ACHING IN PAIN IN SURGICAL KNEE TOLERABLE AT A 2/10. PT REPORTS NO NAUSEA AT THIS TIME.
[2024-09-04 09:15] VITALS: BP 127/65
--- NOTE | 2024-09-04 09:17 | NUR ---
0910 PT ARRIVED TO DAY SURGERY VIA STREACHER. PT REPORTS 5/10 PAIN IN SURGICAL SITE, DISCUSSED GETTING FOOD AND THEN A PAIN PILL. PT SEEMS AGREEABLE. PT BREATHING EQUAL AND UNLABORED. VITALS TAKEN. IV ASSESSED. BED LOW AND LOCKED AND CALL LIGHT WITHIN REACH. PT HAS SNACKS AND WATER AT BEDSIDE. 0918 PT HAS TOLERAED PO WATER AND JELLO.
--- NOTE | 2024-09-04 09:31 | NUR ---
0921 PT GIVEN PAIN MEDICATIONS PER EMAR. PT REPORTS 4/10 PAIN AT THIS TIME. PT HAS BEEN ABLE TO TOLERATE PO FLUIDS AND JELLO. PT REPORTS NO NAUSEA AT THIS TIME. PT RESTING IN BED, CALL LIGHT WITHIN REACH. ICE ON SURGICAL SITE.
[2024-09-04 10:14] VITALS: BP 145/74
--- NOTE | 2024-09-04 10:19 | NUR ---
1010 HOURLY ROUNDING DONE WITH PT. VITALS TAKEN. IV ASSESSED. PT REPORTS TOLERABLE 3/10 PAIN. PT HAS DAUGHTER IN THE ROOM. PT REPORTS NO URGE TO URINATE YET. PT HAS WATER AT BEDSIDE. BED LOW AND LOCKED, CALL LIGHT WITHIN REACH.
--- NOTE | 2024-09-04 11:19 | NUR ---
1035 PT USED CALL LIGHT TO ALERT RN THAT PT NEEDED TO URINATE. PT ABLE TO AMBULATE TO BATHROOM AND VOIDS 500 MLS OF CLEAR YELLOW URINE. PT ABLE TO AMBULATE BACK TO ROOM. IV DISCONTINUED FOR DISCHARGE. 1045 PT DRESSED ON OWN AND DISCHARGE INFORMATION GONE OVER WITH PT AND DAUGHTER AT BEDSIDE. NO QUESTIONS AT THIS TIME. 1050 PT DISCHARGED FROM DAY SURGERY VIA WHEELCHAIR TO THE FRONT OF THE HOSPITAL TO PT'S DAUGHTER'S CAR. PT HAS DISCHARGE INFORMATION IN HAND AND FRESH ICE PACK FOR SURGICAL KNEE.
[2024-09-04] MEDS ORDERED: CELECOXIB 200 MG CAP PO SCH (17:00)
[2024-09-04] MEDS ORDERED: SEVOFLURANE 250 ML BTL INH ONE (17:12)
--- NOTE | 2024-09-05 13:10 | OR ---
[facility] [address] [place], [place] [address] Signed DATE OF OPERATION: 09/04/2024 SURGEON: Kristan William MD PREOPERATIVE DIAGNOSIS: Medial and lateral meniscus tears, right knee. POSTOPERATIVE DIAGNOSIS: Medial and lateral meniscus tears, right knee. PROCEDURE PERFORMED: Right knee arthroscopy with partial, medial, and lateral meniscectomy. CRITICAL CARE REGISTERED NURSE: None. ANESTHESIA: General. BLOOD LOSS: Minimal. BRIEF HISTORY: Jalen is a 79-year-old gentleman with progressive pain and locking in his knee. Risks and benefits of operative treatment were discussed with him and he elected to proceed. Once consent was obtained, he was taken to the operating room. After adequate anesthesia, he was placed on the operating room table. All downside pressure points were well padded. The left leg was flexed, abducted, and externally rotated on a well-padded leg marshall. The right was placed in well-padded proximal leg marshall and the leg was prepped and draped in a standard sterile fashion. Portal sites were injected with 0.25% Marcaine with epinephrine. The standard inferolateral and superolateral portals were made and the scope was introduced in the knee. ARTHROSCOPIC FINDINGS: Marked synovitis was noted throughout the knee with significant anteriorly. The medial and lateral gutters were clear. The patella showed grade 2 chondromalacia and tracked well. The trochlea showed grade 3 to sparse areas of grade 4. 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 There was complex large tear of the meniscus. The lateral compartment showed diffuse areas of grade 3 chondromalacia, smaller is a grade 4 on both the femur and the tibia. There was Electronically Signed By: KRISTAN WILLIAM MD 09/05/24 1310 PATIENT NAME: JALEN CRANE OPERATIVE REPORT DATE OF : 49 REPORT #: [id number] PHYSICIAN: KRISTAN WILLIAM MD PCP: CHECO CANSECO NP REPORT IS CONFIDENTIAL AND NOT TO BE RELEASED WITHOUT AUTHORIZATION [facility] [address] [place], [place] [address] Signed again a complex tear of the meniscus. DESCRIPTION OF OPERATION: Inferomedial portal was established after localization using a spinal needle. The straight and curved biters were used to trim both meniscus tears back to stable rims. These were then feathered and smoothed using the shaver and all debris was evacuated. Chondral flaps in the lateral compartment were also trimmed down. The scope was then withdrawn. Portals were closed with 3-0 nylon and the knee was injected with 60 mg of Toradol. The wounds were dressed with Adaptic, ABD, and Kendrick wrap. He tolerated the procedure well. All sponge, needle, and instrument counts were correct. Kristan William MD [facility] /[id number] Copies: ~ Electronically Signed By: KRISTAN WILLIAM MD 09/05/24 1310 PATIENT NAME: JALEN CRANE OPERATIVE REPORT DATE OF : 49 REPORT #: [id number] PHYSICIAN: KRISTAN WILLIAM MD PCP: CHECO CANSECO NP REPORT IS CONFIDENTIAL AND NOT TO BE RELEASED WITHOUT AUTHORIZATION
== END 2024-09-04 10:50 | disposition home or self-care (01) ==
LOC: DS 07:15
PROVIDERS: ATTEND Specialist
PROC: 0SBC4ZZ Excision of Right Knee Joint, Percutaneous Endoscopic Approach (ICD-10-PCS; 2024-09-04)
PROC: 0SBC4ZZ Excision of Right Knee Joint, Percutaneous Endoscopic Approach (ICD-10-PCS; principal; 2024-09-04 08:15)
DX: S83.231A Complex tear of medial meniscus, current injury, right knee, initial encounter (principal); S83.271A Complex tear of lateral meniscus, current injury, right knee, initial encounter; M65.88 Other synovitis and tenosynovitis, other site; M94.261 Chondromalacia, right knee; I10 Essential (primary) hypertension; Z87.891 Personal history of nicotine dependence; Z79.899 Other long term (current) drug therapy; X58.XXXA Exposure to other specified factors, initial encounter
CPT/HCPCS: 01400; J0131; J0690; J1100; J1885; J2003; J2405; J2704; J3010; J7121